=== PATIENT | female | born 1950 | race Caucasian/White ===

== ENCOUNTER 2019-10-18 04:53 | Day surgery (SDC) | payer OTHER ==
[2019-10-18] MEDS ORDERED: PROPOFOL 10 MG/ML VIAL IV ONE (04:54)
[2019-10-18] MEDS ORDERED: FENTANYL PF 100MCG/2ML VIAL IV ONE (04:54)
[2019-10-18] MEDS ORDERED: MIDAZOLAM HCL 2MG/2ML VIAL IV ONE (04:54)
[2019-10-18] MEDS ORDERED: LIDOCAINE 2% MDV (20MG/ML) 20ML VIAL IV ONE (04:54)
[2019-10-18] MEDS ORDERED: RINGERS SOLUTION,LACTATED 1,000 ML IV ONE (05:30)
[2019-10-18] MEDS ORDERED: ACETAMINOPHEN 1,000 MG/100 ML BTL IVPB ONE (06:00)
[2019-10-18] MEDS ORDERED: CEFAZOLIN 2 Gram 2 GM/50 ML BAG IVPB ONE (06:00)
[2019-10-18] MEDS ORDERED: BUPIVACAINE 0.5% (5MG/ML) PF 30ML VIAL SQ ONE (07:10)
[2019-10-18] MEDS ORDERED: LIDOCAINE 1% MPF 100MG/10ML STERILE-PAK AMPULE SQ ONE ×2 (07:15)
[2019-10-18] MEDS ORDERED: HYDROCODONE/APAP 7.5/325MG TABLET PO ONE (08:55)
--- NOTE | 2019-10-21 08:40 | Operative Note ---
DATE OF SURGERY: 10/18/2019 PREOPERATIVE DIAGNOSIS: Painful tailor's bunion deformity on left foot. OPERATION: Mini reverse tailor's bunionectomy with internal screw fixation left foot. SURGEON: Ghassan Díaz DPM ANESTHESIA: Local with IV sedation. INDICATION: The patient had a painful tailor's bunion deformity left foot not responsive to conservative care. X-ray consistent with tailor's bunion deformity left foot. PROCEDURE: The patient was brought into the OR suite and placed supine upon the OR table. After successful IV sedation was achieved, a left tibial nerve block and proximal infiltrative block was given to the 5th metatarsal of the left foot with 20 mL of a 50/50 mixture of 1% lidocaine plain and 0.5% Marcaine plain after alcohol prep. Padding put on left ankle, pneumatic cuff put in place. The left foot, ankle, and leg was prepped and draped in the usual sterile manner and exsanguinated with an Esmarch, and the tourniquet was raised to 250 mmHg. Incision outlined and made, dorsolateral aspect of the tailor's bunion deformity of left foot approximately 4 cm in length. Sharp and blunt dissection utilized to deepen the incision. All vital structures identified and retracted without difficulty. Inverted L capsulotomy performed and reflected exposing a bony prominence to the lateral aspect of the 5th metatarsal head, which was removed with a power sagittal saw cooled with saline. There was some lack of anesthesia and, therefore, an additional 10 mL of 1% lidocaine plain was infiltrated proximally. The mini reverse Eamon osteotomies were performed, cooled with saline with a long dorsal arm. The capital fragment was transposed approximately 2 mm medially and temporarily fixated with 2 wires from the OsteoMed set driven from a distal dorsal to proximal plantar fashion through the capital fragment into the metatarsal shaft under C-arm guidance. The initial wire measured at 14 mm and therefore one 2.0 x 14 mm headless cannulated OsteoMed screw was driven in typical cannulated fashion. Slight crack noted to the dorsal arm of the capital fragment and, therefore, an additional second screw was thrown. This measured at 12 mm. Therefore, an additional 2.0 x 12 mm headed cannulated OsteoMed screw was driven in typical cannulated fashion. C-arm proved good [id number] contact. Reduction of the tailor's bunion deformity. Screws are of the appropriate length and are in good position. The shelf of bone to the proximal lateral aspect of the 5th metatarsal shaft was removed with a power sagittal saw cooled with saline. No rough edges left intact. Wound flushed with copious amounts of sterile saline. Capsule closed in simple interrupted fashion with 4-0 Vicryl. Subcu closed in similar fashion. Skin closed in subcuticular continuous fashion with 5-0 PDS reinforced with 4-0 nylon in simple interrupted fashion. A combination of sterile Adaptic, 4 x 4's, 4-inch Gareth, and Vish wrap were applied. Tourniquet deflated to 0 mmHg. Hyperemic flush noted to digits. The patient tolerated the procedure well and was transferred to recovery room in stable condition without complaint. She is to minimize ambulation with a mobile cast and crutches, keep extremity elevated, take pain medications as needed, and contact me by cell phone as needed. ELANA
== END 2019-10-18 09:00 | disposition home or self-care (01) ==
LOC: SUR 04:53
PROVIDERS: ATTEND Podiatrist
DX: M21.622 Bunionette of left foot (principal); E11.9 Type 2 diabetes mellitus without complications; E03.9 Hypothyroidism, unspecified
CPT/HCPCS: 28299; 01480; C1713 ×2; J3010; J0690; J3490; J7120